=== PATIENT | male | born 1955 | race African-American/Black ===

== ENCOUNTER 2016-09-23 13:46 | Outpatient (RCR) | payer MEDICARE, BC ==
[~2016-09-23 13:46] MED LIST: ASPIR 8181 MG ORAL; ASPIRIN325 MG ORAL; CATAPRES0.1 MG ORAL; CATAPRES0.3 MG ORAL; CYCLOBENZAPRINE10 MG ORAL; MAGNESIUM CITR296 M1 PO; OXYCODONE HCL5 M2 ORAL; RENVELA800 MG ORAL; TAMSULOSIN HCL0.4 MG ORAL; VERAPAMIL ER180 MG PO; VERAPAMIL ER240 MG ORAL; VICODIN ES 7.51 EAC1 ORAL
== END 2016-09-24 | disposition home or self-care (01) ==
LOC: WCC 13:46
DX: L97.812 Non-pressure chronic ulcer of other part of right lower leg with fat layer exposed (principal); L97.822 Non-pressure chronic ulcer of other part of left lower leg with fat layer exposed; I83.023 Varicose veins of left lower extremity with ulcer of ankle; N18.6 End stage renal disease; L97.311 Non-pressure chronic ulcer of right ankle limited to breakdown of skin; I10 Essential (primary) hypertension; I25.10 Atherosclerotic heart disease of native coronary artery without angina pectoris; Z99.2 Dependence on renal dialysis
CPT/HCPCS: G0463

== ENCOUNTER 2018-04-20 12:53 | Outpatient (RCR) | payer MEDICARE, BC | END 2018-04-24 | disposition home or self-care (01) | LOC: WCC 12:53 | DX: L97.811 Non-pressure chronic ulcer of other part of right lower leg limited to breakdown of skin (principal); L97.821 Non-pressure chronic ulcer of other part of left lower leg limited to breakdown of skin; I87.2 Venous insufficiency (chronic) (peripheral); R05 Cough; Z99.81 Dependence on supplemental oxygen; Z88.8 Allergy status to other drugs, medicaments and biological substances; Z88.0 Allergy status to penicillin; Z91.040 Latex allergy status; I12.0 Hypertensive chronic kidney disease with stage 5 chronic kidney disease or end stage renal disease; N18.6 End stage renal disease | CPT/HCPCS: 29580 ==

== ENCOUNTER 2018-05-11 12:38 | Outpatient (RCR) | payer MEDICARE, BC | END 2018-05-24 | disposition home or self-care (01) | LOC: WCC 12:38 | DX: L97.811 Non-pressure chronic ulcer of other part of right lower leg limited to breakdown of skin (principal); L97.821 Non-pressure chronic ulcer of other part of left lower leg limited to breakdown of skin; I87.2 Venous insufficiency (chronic) (peripheral); Z88.0 Allergy status to penicillin; Z88.8 Allergy status to other drugs, medicaments and biological substances; Z91.040 Latex allergy status | CPT/HCPCS: 11042; 11045; 29580 ==

== ENCOUNTER 2018-06-08 10:38 | Outpatient (RCR) | payer MEDICARE, BC | END 2018-06-24 | disposition home or self-care (01) | LOC: WCC 10:38 | DX: L97.812 Non-pressure chronic ulcer of other part of right lower leg with fat layer exposed (principal); L97.822 Non-pressure chronic ulcer of other part of left lower leg with fat layer exposed; I87.2 Venous insufficiency (chronic) (peripheral); I13.11 Hypertensive heart and chronic kidney disease without heart failure, with stage 5 chronic kidney disease, or end stage renal disease; N18.6 End stage renal disease; Z99.2 Dependence on renal dialysis; Z88.0 Allergy status to penicillin; Z88.8 Allergy status to other drugs, medicaments and biological substances; Z91.040 Latex allergy status | CPT/HCPCS: G0463 ==

== ENCOUNTER 2018-10-26 10:08 | Outpatient (RCR) | payer MEDICARE, BC | END 2018-11-22 | disposition home or self-care (01) | LOC: WCC 10:08 | DX: L97.822 Non-pressure chronic ulcer of other part of left lower leg with fat layer exposed (principal); I87.2 Venous insufficiency (chronic) (peripheral); N18.6 End stage renal disease; I13.11 Hypertensive heart and chronic kidney disease without heart failure, with stage 5 chronic kidney disease, or end stage renal disease; Z99.2 Dependence on renal dialysis; Z88.0 Allergy status to penicillin; Z88.8 Allergy status to other drugs, medicaments and biological substances; Z91.040 Latex allergy status | CPT/HCPCS: 11042; 11045; 29580 ==

== ENCOUNTER 2018-11-30 09:59 | Outpatient (RCR) | payer MEDICARE, BC | END 2018-12-22 | disposition home or self-care (01) | LOC: WCC 09:59 | DX: L97.822 Non-pressure chronic ulcer of other part of left lower leg with fat layer exposed (principal); I87.2 Venous insufficiency (chronic) (peripheral); I13.11 Hypertensive heart and chronic kidney disease without heart failure, with stage 5 chronic kidney disease, or end stage renal disease; N18.6 End stage renal disease; Z99.2 Dependence on renal dialysis; Z88.0 Allergy status to penicillin; Z88.8 Allergy status to other drugs, medicaments and biological substances | CPT/HCPCS: 11042; 11045; 29580 ==

== ENCOUNTER 2019-07-07 06:42 | Day surgery (SDC) | payer MEDICARE, BC ==
[2019-07-07] VITALS (9 sets, daily range): BP systolic 124–140; BP diastolic 74–96
[~2019-07-07] VITALS: Ht 175.3 cm; Wt 140.2 kg
[2019-07-07] MEDS ORDERED: LR 1000ml 1,000 ML IVLG SCH (07:00)
[2019-07-07] MEDS ORDERED: ELIQUIS5 MG PO (07:38)
[2019-07-07] MEDS ORDERED: HYDRALAZINE HCL10 MG ORAL (07:38)
[2019-07-07] MEDS ORDERED: Propofol 200mg/20ml IV ONE (08:00)
[2019-07-07] MEDS ORDERED: fentaNYL 100 mcg/2 mL IV ONE (08:00)
[2019-07-07] MEDS ORDERED: Midazolam 2mg/2ml Inj ONE (08:00)
--- NOTE | 2019-07-07 08:03 | Short Stay Surgery H&P ---
History of Present Illness History of Present Illness Chief Complaint see H&P typed HPI Terrence Fajardo, Sr is a 64 year old male who was admitted on for Anemia Patient History Allergies: Coded Allergies: BACITRACIN (Unverified Allergy, Intermediate, ITCHING, 07/07/19) PENICILLINS (Verified Allergy, Intermediate, ITCHING, 07/07/19) Medication History Scheduled Apixaban (Eliquis), 5 MG PO DAILY, (Reported) Hydralazine Hcl* (Hydralazine Hcl*), 10 MG ORAL DAILY, (Reported) Scheduled PRN Oxycodone Hcl* (Oxycodone Hcl*), 325 MG ORAL QID PRN for For Pain, (Reported) Discontinued Medications Aspirin* (Aspirin*), 325 MG ORAL BID, (Reported) Discontinued Reason: Pt stopped taking med Clonidine Hcl* (Catapres*), 0.3 MG ORAL QID, (Reported) Discontinued Reason: Pt stopped taking med Sevelamer Carbonate (Renvela), 800 MG ORAL THREE TIMES A DAY, (Reported) Discontinued Reason: Pt stopped taking med Tamsulosin Hcl (Tamsulosin Hcl*), 0.4 MG ORAL BID, (Reported) Discontinued Reason: Pt stopped taking med Verapamil Hcl* (Calan Sr*), 240 MG ORAL BID, (Reported) Discontinued Reason: Pt stopped taking med Physical Exam Vital Signs Last Vital Signs Date Time Temp Pulse Resp B/P (MAP) Pulse Ox O2 Delivery O2 Flow Rate FiO2 07/07/19 07:39 Room Air 07/07/19 07:31 98.1 89 18 129/78 99 Labs Laboratory Tests Test 07/07/19 07:20 Potassium Level 3.7 MMOL/L (3.5-5.1) Plan Attestation Are the patient's medical conditions optimized for surgery? David Warren MD Jul 07, 2019 08:03
--- NOTE | 2019-07-07 08:03 | Pre-Procedure Note/Attestation ---
Pre-Procedure Note/Attestation Complete Prior to Procedure Planned Procedure: not applicable Procedure Narrative: colonoscopy Indications for Procedure Pre-Operative Diagnosis: anemia Attestation I attest that I discussed the nature of the procedure; its benefits; risks and complications; and alternatives (and the risks and benefits of such alternatives ), prior to the procedure, with the patient (or the patient's legal registered representative). I attest that, if there was a reasonable possibility of needing a blood transfusion, the patient (or the patient's legal registered representative) was given the [facility] standardized written summary, pursuant to the Juanito Karan Blood Safety Act ([place] Health and Safety Code # 1645, as amended). I attest that I re-evaluated the patient just prior to the surgery and that there has been no change in the patient's H&P, except as documented below: David Warren MD Jul 07, 2019 08:03
--- NOTE | 2019-07-07 08:13 | Anethesia Preoperative Eval ---
Anesthesia Pre-op PMH/ROS General Date of Evaluation: Jul 07, 2019 Time of Evaluation: 07:50 Anesthesiologist: Benji ASA Score: ASA 3 Mallampati Score Class I : Soft palate, uvula, fauces, pillars visible Class II: Soft palate, uvula, fauces visible Class III: Soft palate, base of uvula visible Class IV: Only hard plate visible Mallampati Classification: Class III Surgeon: Lila Diagnosis: Abdominal pain Surgical Procedure: Colonoscopy Anesthesia History: none Family History: no anesthesia problems Allergies: Coded Allergies: BACITRACIN (Unverified Allergy, Intermediate, ITCHING, 07/07/19) PENICILLINS (Verified Allergy, Intermediate, ITCHING, 07/07/19) Medications: see eMAR Patient NPO?: Yes Past Medical History Cardiovascular: Reports: HTN; Denies: CAD, SC, valve dz, arrhythmia, other Pulmonary: Reports: ROSA; Denies: asthma, COPD, other Gastrointestinal/Genitourinary: Reports: GERD, ESRD - on HD; Denies: CRI, other Neurologic/Psychiatric: Reports: depression/anxiety; Denies: dementia, CVA, TIA, other Endocrine: Denies: DM, hypothyroidism, steroids, other HEENT: Denies: cataract (L), cataract (R), glaucoma, ELIM IRA (L), ELIM IRA (R), other Hematology/Immune: Reports: anemia - of chronic d-s, DVT - h/o; Denies: bleeding disorder, other Musculoskeletal/Integumentary: Reports: DJD; Denies: OA, RA, DDD, edema, other Other: obesity - morbid obesity PMH Narrative: as above PSxH Narrative: see H&P Anesthesia Pre-op Phys. Exam Physician Exam Last Vital Signs Date Time Temp Pulse Resp B/P (MAP) Pulse Ox O2 Delivery O2 Flow Rate FiO2 07/07/19 07:39 Room Air 07/07/19 07:31 98.1 89 18 129/78 99 Constitutional: NAD Neurologic: CN 2-12 intact Cardiovascular: RRR, no M/R/G Respiratory: other - diminished breath sounds Gastrointestinal: other - obesity Airway Exam Mallampati Score: Class III MO: limited Neck: short ROM: limited Teeth: missing Dentures: no upper, no lower Anesthesia Pre-op A/P Labs Chemistry Test 07/07/19 07:20 Potassium Level 3.7 MMOL/L (3.5-5.1) Risk Assessment & Plan Assessment: ASA 3 Plan: MAc Status Change Before Surgery: Manuel Kathleen MD Jul 07, 2019 08:13
[2019-07-07] MEDS ORDERED: DiphenhydrAMINE 50mg/ml Inj IVP PRN (08:15)
--- NOTE | 2019-07-07 08:20 | Endoscopy Procedure Note ---
Endoscopy Procedure Note General Indication for Procedure: anemia Procedures Performed: colonoscopy Operative Findings/Diagnosis: mild internal hemorrhoids Specimen: none Pt Tolerated Procedure Well: Yes Estimated Blood Loss: minimal Anesthesia Anesthesiologist: Therese Anesthesia: MAC Medications Medication Given: see anesthesia record Inserted Devices Implant(s) used?: No GI Core Measures 50 yrs or older w/o bx or poly: Yes 10yrs. F/U recommended: Yes If not recommended, why?: 18 years or older w/prev. colo: No <3yrs. since last colonoscopy: No Med reason:<3 yrs.: System Reason:<3 yrs.: Last colonoscopy >= to 3yrs: Yes David Warren MD Jul 07, 2019 08:20
--- NOTE | 2019-07-07 08:21 | Brief Operative Note ---
Immediate Post Operative Note Operative Note Chief Complaint: anemia Pre-op Diagnosis: anemia Procedure: colon Post-op Diagnosis: mild hemorrhoids Surgeon: mary Anesthesiologist: zohaib Anesthesia: MAC Specimen: none Complications: none Condition: stable Fluids: per anesthesa Estimated Blood Loss: minimal Drains: none Implant(s) used?: No David Warren MD Jul 07, 2019 08:21
--- NOTE | 2019-07-07 08:30 | Immediate Post-Op Evaluation ---
Immediate Post-Op Evalulation Immediate Post-Op Evalulation Procedure: Colonoscopy Date of Evaluation: Jul 07, 2019 Time of Evaluation: 08:29 IV Fluids: 200 Blood Products: none Estimated Blood Loss: none Urinary Output: none Blood Pressure Systolic: 130 Blood Pressure Diastolic: 76 Pulse Rate: 87 Respiratory Rate: 20 O2 Sat by Pulse Oximetry: 99 Temperature (Fahrenheit): 97.4 Pain Score (1-10): 1 Nausea: No Vomiting: No Complications none Patient Status: reacts, patent, none Hydration Status: adequate Manuel Leblanc MD Jul 07, 2019 08:30
--- NOTE | 2019-07-07 09:26 | 48 Hour Post Anesthesia Eval ---
Post Anesthesia Evaluation Procedure: Colonoscopy Date of Evaluation: Jul 07, 2019 Time of Evaluation: 09:25 Blood Pressure Systolic: 125 0: 76 Pulse Rate: 74 Respiratory Rate: 20 Temperature (Fahrenheit): 97.6 O2 Sat by Pulse Oximetry: 98 Airway: patent Nausea: No Vomiting: No Pain Intensity: 1 Hydration Status: adequate Cardiopulmonary Status: stable Mental Status/LOC: patient returned to baseline Follow-up Care/Observations: n/a Post-Anesthesia Complications: none Follow-up care needed: ready to discharge Manuel Leblanc MD Jul 07, 2019 09:26
--- NOTE | 2019-07-07 15:15 | Procedure Note ---
DATE OF PROCEDURE: 07/07/2019 GASTROENTEROLOGY PROCEDURE REPORT PROCEDURE: Colonoscopy. SURGEON: David Warren M.D. ANESTHESIA: Manuel Leblanc M.D. PRE-ENDOSCOPIC DIAGNOSIS: Anemia. POST-ENDOSCOPIC DIAGNOSIS: Mild hemorrhoids. DESCRIPTION OF PROCEDURE: The procedure, its risks, indications, alternatives, and possible complications were explained and informed consent was obtained. The patient was then sedated in the left lateral decubitus position and a rectal exam was done, which was unremarkable. The colonoscope was then introduced in the rectum and advanced to the cecum without difficulty. The cecum was identified by the appearance of the ileocecal valve. The colonoscope was then gradually withdrawn and the mucosa examined carefully. Retroflexed view of the rectum revealed mild internal hemorrhoids. There were no polyps or masses. The colonoscope was removed. The patient was sent to recovery in good condition. COMPLICATIONS: None. RECOMMENDATION: 1. Resume oral diet. 2. Follow up with primary physician. David Warren M.D. DR: YI JOB#: [id number] CC:
== END 2019-07-07 10:00 | disposition home or self-care (01) ==
LOC: GAS 06:42
DX: D64.9 Anemia, unspecified (principal); K64.8 Other hemorrhoids; Z88.0 Allergy status to penicillin; Z88.8 Allergy status to other drugs, medicaments and biological substances; I12.0 Hypertensive chronic kidney disease with stage 5 chronic kidney disease or end stage renal disease; N18.6 End stage renal disease; Z99.2 Dependence on renal dialysis; G47.33 Obstructive sleep apnea (adult) (pediatric); F32.9 Major depressive disorder, single episode, unspecified; F41.9 Anxiety disorder, unspecified; Z86.718 Personal history of other venous thrombosis and embolism; E66.01 Morbid (severe) obesity due to excess calories; Z68.42 Body mass index [BMI] 45.0-49.9, adult
CPT/HCPCS: 36415; 45378; 84132; J2250; J2704; J3010; 94003; 94150; J7030